=== PATIENT | male | born 1995 | race Two or more races ===

== ENCOUNTER 2018-10-22 23:38 | Inpatient (IN) | payer MEDICAID ==
[~2018-10-22] VITALS: Ht 182.9 cm; Wt 98.1 kg
[2018-10-23 01:15] LABS: Basophils # (auto) 0 uL; Basophils % (auto) 0.2 % (0.0-2.0); Eosinophils # (auto) 0.1 uL; Eosinophils % (auto) 0.5 % (0.0-7.0); Hematocrit 47.5 % (41.0-53.0); Lymphocytes # (auto) 1.8 uL; Lymphocytes % (auto) 13.1 % (10.0-50.0); Mean Corpuscular Hemoglobin 29.4 pg (28.0-32.0); Mean Corpuscular Hgb Conc. 33.7 g/dL (32.0-36.0); Mean Corpuscular Volume 87.3 fL (80.0-100.0); Monocytes # (auto) 0.9 uL; Monocytes % (auto) 6.2 % (0.0-12.0); Neutrophils # (auto) 10.9 uL; Platelet Count (auto) 221 10^3/uL (140-450); Red Blood Cells 5.44 10^6/uL (4.5-5.90); Red Cell Distribution Width 13.2 % (11.8-14.3); White Blood Cell 13.6 10^3/uL (4.4-10.8)
[2018-10-23 01:20] LABS: Urine Bacteria FEW /hpf (None Seen); Urine Blood Negative /uL (Negative); Urine Specific Gravity 1.014 (1.001-1.035); Urine WBC 1 /hpf (0 - 3)
[2018-10-23 01:29] LABS: INR 0.97 (0.9-1.15); Partial Thromboplastin Time 26.8 sec (23.78-33.04); Prothrombin Time 10.4 sec (9.27-12.13)
[2018-10-23 01:35] LABS: Albumin 4.5 g/dL (3.4-5.0); BUN/Creatinine Ratio 13.5; Calcium 9.4 mg/dL (8.5-10.1); Magnesium 2.2 mg/dL (1.6-2.6); Potassium 4.2 mmol/L (3.5-5.1)
[2018-10-23 01:38] LABS: Bilirubin, Total 0.6 mg/dL (0.2-1.0); Total Protein 8.2 g/dL (6.4-8.2)
[2018-10-23] MEDS ORDERED: metroNIDAZOLE 500MG/100ML 100 ML IV ONE (03:45)
[2018-10-23] MEDS ORDERED: HYDROmorphone HCL 2 MG/ML VL IV ONE ×2 (03:45→10:30)
[2018-10-23] MEDS ORDERED: SODIUM CHLORIDE 0.9% 1,000 ML IV ONE (03:45)
[2018-10-23] MEDS ORDERED: ONDANSETRON HCL 4 MG/2 ML VIAL IV ONE ×2 (03:45→08:45)
[2018-10-23] MEDS ORDERED: PIPERACILLIN-TAZOB 3.375GM 100 ML IV ONE (03:45)
[2018-10-23] MEDS: SODIUM CHLORIDE 0.9% 1,000 ML IV SCH ×2 (04:30→18:07)
[2018-10-23] MEDS ORDERED: MORPHINE SULFATE 4 MG/ML SYR/VIAL IV PRN (04:30)
[2018-10-23] MEDS ORDERED: ONDANSETRON HCL 4 MG/2 ML VIAL IV PRN ×2 (04:30→10:30)
[2018-10-23] MEDS ORDERED: LIDOCAINE 1% (LOCAL ANESTH.) PF 5ml SDV ONE (08:41)
[2018-10-23] MEDS ORDERED: ceFAZolin 1GM/50ML 50 ML IV ONE (08:41)
[2018-10-23] MEDS ORDERED: SUCCINYLCHOLINE CHLORIDE 20 MG/ML 10ML VIAL IV ONE (08:41)
[2018-10-23] MEDS ORDERED: MIDAZOLAM HCL 1MG/1ML-2 ML VIAL ONE (08:44)
[2018-10-23] MEDS ORDERED: NALOXONE HCL 0.4 MG/ML VIAL IV PRN (08:45)
[2018-10-23] MEDS ORDERED: HYDROmorphone HCL 2 MG/ML VL IV PRN ×2 (08:45)
[2018-10-23] MEDS ORDERED: PROPOFOL 10 MG/ML 20 ML IV ONE (08:46)
[2018-10-23] MEDS ORDERED: ROCURONIUM 10MG/ML 10ML VIAL IV ONE (08:46)
[2018-10-23] MEDS ORDERED: cefTRIAXone 1GM/50ML D5W 50 ML IV SCH (09:00)
[2018-10-23] MEDS ORDERED: METOCLOPRAMIDE HCL 5MG/ml INJ 2ml VIAL ONE (09:29)
[2018-10-23] MEDS ORDERED: KETOROLAC TROMETH 30 MG/ML 1ML VIAL ONE (09:29)
[2018-10-23] MEDS ORDERED: LIDOCAINE 2% (LOCAL ANESTH.) PF 5ml SDV ONE (09:42)
--- NOTE | 2018-10-23 09:45 | NUR ---
VISITORS PATIENTS FATHER IS AT NURSES STATION REQUESTING TO KNOW WHERE THE PATIENT IS, PATIENT HAS NOT YET ARRIVED TO FLOOR, CALL PLACED TO ER TO LOCATE PT, ER STATES PT WENT TO OR, CALLED OR, SPOKE TO OR PREOP NURSE, PATIENT IS IN PREOP.
[2018-10-23] MEDS ORDERED: fentaNYL CITRATE 100 MCG/2 ML VL ONE (09:49)
[2018-10-23] MEDS: PANTOPRAZOLE 40 MG/10 ML VIAL IV SCH (10:00)
[2018-10-23] MEDS ORDERED: NEOSTIGMINE 1 MG/ML INJ (10mg/10ML VIAL) ONE (10:08)
[2018-10-23] MEDS ORDERED: GLYCOPYRROLATE 0.2 MG/ML 1ML VIAL ONE (10:08)
[2018-10-23] MEDS ORDERED: IBUPROFEN 600 MG TAB PO PRN (10:15)
--- NOTE | 2018-10-23 11:47 | NUR ---
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 PATIENT HAS FAMILY MEMBERS AT BEDSIDE INCLUDING MOTHER FATHER AND SISTER. PATIENT IS AOX4, TALKING, AND RESPONDING APPROPRIATELY. SCD'S ARE IN PLACE BILATERALLY, 3 MIDLINE ABDOMINAL INCISIONS ARE COVERED WITH TELFA AND TEGADERM CDI, ABD IS SOFT TO PALPATION, PT IS NOT COMPLAINING OF PAIN AT THIS TIME, EDUCATED ON PAIN RELIEF BENEFITS AND OPTIONS, PT INSTRUCTED TO CALL NURSES STATION NEEDED, BED IN LOWEST LOCKED POSITION, INSTRUCTED PT TO CALL FOR ASSISTANCE TO AMBULATE AT THIS TIME, CALL LIGHT IS WITHIN REACH, WILL CONTINUE TO MONITOR Q1HR AND PRN
--- NOTE | 2018-10-23 13:51 | NUR ---
ROUNDS PATIENT STILL RESTING AT THIS TIME, NO S/S PAIN/SOB/DISTRESS, WILL CONTINUE TO MONITOR Q1HR AND PRN
[2018-10-23] MEDS ORDERED: metroNIDAZOLE 500MG/100ML 100 ML IV SCH (14:00)
[2018-10-23 14:33] VITALS: BP 118/60
[2018-10-23 17:15] VITALS: BP 108/73
[2018-10-23] MEDS: metroNIDAZOLE 500MG/100ML 100 ML IV SCH ×2 (18:07→21:24)
[2018-10-23] MEDS: ceFAZolin 1GM/50ML 50 ML IV SCH ×2 (18:07→21:24)
[2018-10-23 20:15] VITALS: BP 116/53
--- NOTE | 2018-10-23 20:15 | NUR ---
Opening Shift Note Assumed care of pt, awake and alert sitting up in bed with family at bedside. No signs of SOB or distress, no pain reported or noted at this time. Instructed pt. on POC and to call for assistance as needed, pt. verbalized understanding. Safety precautions in place including, bed set to lowest position/locked, bedside rails up x2, call light within reach. Will continue to monitor q1hr and PRN.
[2018-10-23 21:57] VITALS: BP 116/53
[2018-10-24] MEDS: SODIUM CHLORIDE 0.9% 1,000 ML IV SCH ×2 (02:51→12:48)
[2018-10-24] MEDS: metroNIDAZOLE 500MG/100ML 100 ML IV SCH ×2 (05:09→13:18)
[2018-10-24] MEDS: ceFAZolin 1GM/50ML 50 ML IV SCH ×2 (05:09→13:17)
[2018-10-24 05:27] VITALS: BP 117/71
[2018-10-24 06:38] LABS: Basophils # (auto) 0 uL; Basophils % (auto) 0.2 % (0.0-2.0); Eosinophils # (auto) 0.1 uL; Eosinophils % (auto) 1.1 % (0.0-7.0); Hematocrit 40.8 % (41.0-53.0); Hemoglobin 13.8 g/dL (13.5-17.5); Lymphocytes # (auto) 1.5 uL; Lymphocytes % (auto) 23.5 % (10.0-50.0); Mean Corpuscular Hemoglobin 29.7 pg (28.0-32.0); Mean Corpuscular Hgb Conc. 33.8 g/dL (32.0-36.0); Mean Corpuscular Volume 87.9 fL (80.0-100.0); Monocytes # (auto) 0.5 uL; Monocytes % (auto) 8.4 % (0.0-12.0); Neutrophils # (auto) 4.3 uL; Neutrophils % (auto) 66.8 % (37.0-80.0); Nucleated Red Blood Cells % 0.1 %; Platelet Count (auto) 180 10^3/uL (140-450); Red Blood Cells 4.65 10^6/uL (4.5-5.90); Red Cell Distribution Width 12.9 % (11.8-14.3); White Blood Cell 6.5 10^3/uL (4.4-10.8)
[2018-10-24 06:51] LABS: BUN/Creatinine Ratio 10.1; Calcium 8.5 mg/dL (8.5-10.1); Potassium 3.6 mmol/L (3.5-5.1)
--- NOTE | 2018-10-24 07:32 | NUR ---
Endorsed care to day shift RN
--- NOTE | 2018-10-24 07:45 | NUR ---
Opening Shift Note Assumed care of patient, awake and alert. No S/S of distress/SOB or pain. WBAT with knee immobilizer or hip abduction. Instructed on POC and to call for assist PRN, Bed locked in the lowest position, call light within easy reach, will continue to monitor for changes Q1hr and PRN. Addendum: 10/24/18 at 1054 by Greg Rushing RN RN please disregard this noted. wrong pt
--- NOTE | 2018-10-24 07:50 | NUR ---
Opening Shift Note Assumed care of patient, awake and alert, three Abd incisions intact no bleeding noted, abd binder in place. Lungs clear khushbu to auscultation. No S/S of distress/SOB or pain. Incrusted on POC and to call for assist PRN, will continue to monitor for changes Q1hr and PRN.
[2018-10-24 08:00] VITALS: BP 106/66
[2018-10-24 09:00] VITALS: BP 106/66
[2018-10-24] MEDS: PANTOPRAZOLE 40 MG/10 ML VIAL IV SCH (09:53)
[2018-10-24] MEDS ORDERED: PANTOPRAZOLE 40 MG/10 ML VIAL IV SCH (10:00)
--- NOTE | 2018-10-24 12:00 | NUR ---
DR. BUCHANAN AT BEDSIDE.
[2018-10-24 13:00] VITALS: BP 120/79
[2018-10-24 13:53] VITALS: BP 120/79
--- NOTE | 2018-10-24 17:13 | NUR ---
Discharge instructions given as ordered. Encourage to follow up with Dr. Marita Odonnell and Dr. Tenorio as instructed. All questions and concerns addressed. Patient verbalized understanding. Medication reconciliation form completed and copy given to patient. IV removed with catheter intact, pressure dressing applied. Patient taken to vehicle via wheelchair with all personal belongings, accompanied by staff and family member. No distress noted at time of departure.
== END 2018-10-24 17:54 | disposition home or self-care (01) | DRG 234 ==
LOC: ER 23:42 → OVERFLOW 10-23 04:47 → WEST WING 10-23 11:21
PROVIDERS: ADMIT Nurse Practitioner; ATTEND Hospitalist
PROC: 0DTJ4ZZ Resection of Appendix, Percutaneous Endoscopic Approach (ICD-10-PCS; principal; 2018-10-23 09:21)
DX: K35.80 Unspecified acute appendicitis (principal); E66.9 Obesity, unspecified; R10.9 Unspecified abdominal pain; Z68.29 Body mass index [BMI] 29.0-29.9, adult
CPT/HCPCS: 36415; 71045; 74176; 80048; 80053; 81001; 82150; 83690; 83735; 85025; 85610; 85730; 96361; 96365; 96367; 96375; A6257; C9113; G0378; J0330; J0690; J1885; J2001; J2250; J2405; J2543; J2704; J3490

== ENCOUNTER 2023-04-19 16:14 | Emergency (ER) | payer MEDICAID, OTHER ==
[~2023-04-19] VITALS: Ht 182.9 cm; Wt 110.0 kg
[2023-04-19 16:59] VITALS: BP 133/74; PULSE 93; RESP 18; TEMP 98.5; O2SAT 97
[2023-04-19] MEDS ORDERED: IBUP-1456 PO (17:35)
[2023-04-19] MEDS ORDERED: METH-1182 PO (17:35)
== END 2023-04-19 17:46 | disposition home or self-care (01) ==
LOC: ER 16:14
DX: S29.012A Strain of muscle and tendon of back wall of thorax, initial encounter (principal); X50.1XXA Overexertion from prolonged static or awkward postures, initial encounter; Y93.B9 Activity, other involving muscle strengthening exercises; Y92.89 Other specified places as the place of occurrence of the external cause; Y99.8 Other external cause status
CPT/HCPCS: 71046